=== PATIENT | male | born 1960 | race Caucasian/White ===

== ENCOUNTER → 2017-05-30 | Outpatient (CLI) | payer OTHER ==
[~2017-05-30] MED LIST: ASPIRIN EC81 MG PO; DEXILANT30 MG PO; LISINOPRIL 10MG10 MG NG; LOVASTATIN10 MG PO; MULTIVITAMIN1 TA1 PO; NEXIUM40 MG PO; OSTEO BI-FLEX; RESTORIL 15MG C15 MG PO
== END ==
LOC: LAB 09:06
DX: R97.20 Elevated prostate specific antigen [PSA] (principal)